=== PATIENT | female | born 1975 | race Asian ===

== ENCOUNTER 2023-12-09 17:27 | Emergency (ER) | payer OTHER ==
[~2023-12-09] VITALS: Ht 160 cm; Wt 65.8 kg
--- NOTE | 2023-12-09 18:09 | NUR ---
PATIENT UNABLE TO PROVIDE URINE SAMPLE, MADE AWARE
[2023-12-09] MEDS ORDERED: MAG HYDROX/AL HYDROX/SIMETH 30 ML UDC ONE (19:02)
[2023-12-09] MEDS ORDERED: KETOROLAC TROMETHAMINE INJ 30 MG/ML VIAL ONE (19:02)
[2023-12-09] MEDS ORDERED: ONDANSETRON 4 MG TAB.RAPDIS ONE (19:02)
[2023-12-09] MEDS ORDERED: SUMATRIPTAN SUCCINATE 6 MG/0.5 ML VIAL SQ ONE (19:02)
[2023-12-09] MEDS ORDERED: LIDOCAINE VISCOUS 2% UD 15 ML UDC ONE (19:02)
[2023-12-09 19:03] LABS: BASOPHILS % (AUTO) 0.5 % (0.0-2.0); EOSINOPHILS # (AUTO) 0.1 K/uL (0.0-0.7); HEMATOCRIT 39 % (33-45); HEMOGLOBIN 12.9 g/dL (11.5-14.8); LYMPHOCYTES % (AUTO) 24.1 % (20.0-44.0); MEAN CORPUSCULAR HEMOGLOBIN 29 PG (26.0-33.0); MEAN CORPUSCULAR HGB CONC 33 g/dl (31.0-36.0); MEAN CORPUSCULAR VOLUME 86 fL (82-100); MONOCYTES % (AUTO) 11.4 % (2.0-12.0); NEUTROPHILS # (AUTO) 5.3 K/uL (1.8-8.9); PLATELET COUNT (AUTO) 201 K/uL (150-450); RED BLOOD CELL COUNT(AUTO) 4.52 MIL/uL (4.0-5.2); RED CELL DISTRIBUTION WIDTH 15.4 % (11.5-15.0); WHITE BLOOD COUNT (AUTO) 8.5 K/uL (4.3-11.0)
[2023-12-09 19:10] LABS: CALCIUM, SERUM 9.3 mg/dL (8.5-10.1); CREATININE 0.8 mg/dL (0.6-1.3); POTASSIUM 2.8 mmol/L (3.5-5.1)
[2023-12-09] MEDS: LIDOCAINE VISCOUS 2% UD 15 ML UDC MM ONE (19:13)
[2023-12-09] MEDS: SUMATRIPTAN SUCCINATE 6 MG/0.5 ML VIAL SQ ONE (19:13)
[2023-12-09] MEDS: MAG HYDROX/AL HYDROX/SIMETH 30 ML UDC PO ONE (19:13)
[2023-12-09] MEDS: KETOROLAC TROMETHAMINE INJ 60 MG/2 ML VIAL IM ONE (19:13)
[2023-12-09] MEDS: ONDANSETRON 4 MG TAB.RAPDIS SL ONE (19:13)
[2023-12-09 19:16] LABS: ALBUMIN 3.7 g/dL (3.4-5.0); BILIRUBIN,DIRECT 0.2 mg/dL (0.0-0.2); BILIRUBIN,TOTAL 0.6 mg/dL (0.2-1.0); TOTAL PROTEIN, SERUM 7.3 g/dL (6.4-8.2)
[2023-12-09] MEDS ORDERED: FAMO20TA80 PO (19:58)
[2023-12-09] MEDS ORDERED: PANT40TA2 PO (19:58)
[2023-12-09] MEDS ORDERED: ONDA4TAB11 PO (19:58)
[2023-12-09] MEDS ORDERED: OLAN10TA3 PO (20:14)
[2023-12-09] MEDS ORDERED: DIVA500T2 PO (20:14)
[2023-12-09] MEDS ORDERED: GABA600T12 PO (20:14)
[2023-12-09] MEDS ORDERED: OLANZAPINE 5 MG TABLET ONE (20:18)
[2023-12-09] MEDS ORDERED: DIVALPROEX SODIUM 500 MG TABLET.DR PO ONE (20:18)
[2023-12-09 20:22] VITALS: BP 126/79; TEMP 98.7; O2SAT 99
[2023-12-09] MEDS: OLANZAPINE 5 MG TABLET PO ONE (20:22)
[2023-12-09] MEDS: DIVALPROEX SODIUM 500 MG TABLET.DR PO ONE (20:22)
--- NOTE | 2023-12-09 20:22 | NUR ---
Patient discharged to home in stable condition. Written and verbal after care instructions given. Patient verbalizes understanding of instruction.
== END 2023-12-09 20:23 | disposition home or self-care (01) ==
LOC: ER 17:51
DX: K29.70 Gastritis, unspecified, without bleeding (principal); G43.909 Migraine, unspecified, not intractable, without status migrainosus; F31.9 Bipolar disorder, unspecified; F20.9 Schizophrenia, unspecified; Z79.899 Other long term (current) drug therapy; Z60.2 Problems related to living alone
CPT/HCPCS: 99284; 96372 ×2; 85025; 80048; 83690; 80076; 36415; J3030; J1885; Q0162